=== PATIENT | male | born 1945 | race Caucasian/White ===

== ENCOUNTER → 2017-02-26 | Outpatient (CLI) | payer MEDICARE, BC | END | disposition home or self-care (01) | LOC: PCVCCLINIC 11:00 | PROVIDERS: ATTEND Internal Medicine | DX: Z01.812 Encounter for preprocedural laboratory examination (principal); I25.110 Atherosclerotic heart disease of native coronary artery with unstable angina pectoris; R07.9 Chest pain, unspecified; I71.4 Abdominal aortic aneurysm, without rupture; E78.5 Hyperlipidemia, unspecified; I10 Essential (primary) hypertension; I73.9 Peripheral vascular disease, unspecified; R73.02 Impaired glucose tolerance (oral); E78.00 Pure hypercholesterolemia, unspecified; Z87.891 Personal history of nicotine dependence; Z79.82 Long term (current) use of aspirin | CPT/HCPCS: 36415; G0463 ==

== ENCOUNTER → 2017-02-27 | Outpatient (CLI) | payer MEDICARE, BC ==
--- NOTE | 2017-02-27 16:24 | PCVCIMAG ---
APPROVED REPORT Indications Stenosis Risk Factors Hypertension: Hyperlipidemia PAD Doppler Spectral Velocity Analysis PSV / EDVPSV / EDV ECA (R) 86 / 8 cm/sECA (L) 86 / 10 cm/s dICA (R) 100 / 30 cm/sdICA (L) 78 / 24 cm/s Aura (R) 76 / 26 cm/smICA (L) 87 / 29 cm/s pICA (R) 78 / 12 cm/spICA (L) 54 / 9 cm/s Bulb (R) 57 / 12 cm/sBulb (L) 84 / 16 cm/s dCCA (R) 86 / 18 cm/sdCCA (L) 97 / 20 cm/s mCCA (R) 96 / 19 cm/smCCA (L) 97 / 16 cm/s Vert (R) 73 / 16 cm/sVert (L) 50 / 11 cm/s ICA/CCA 1.16ICA/CCA 0.90 Basic Measurements Blood Pressure: Pulses: Right Left RightLeft Brachial(Sitting) 166/40kkRn209/90mmHgTemporal Real Time B-Mode Imaging AreaRight Plaque DescriptionLeft Plaque Description VertebralAntegradeAntegrade Findings The right carotid bulb has moderate calcified plaque. The right proximal internal carotid artery shows <40% stenosis. The right common carotid artery shows no significant stenosis. The right external carotid artery shows no significant stenosis. The left carotid bulb has mild calcified plaque. The left proximal internal carotid artery shows no significant stenosis. The left common carotid artery shows no significant stenosis. The left external carotid artery shows no significant stenosis. Conclusion 1. Right internal carotid artery stenosis (<40%) 2. Left internal carotid plaquing 3. Antegrade vertebral flow
--- NOTE | 2017-02-27 16:33 | PCVCIMAG ---
APPROVED REPORT Study performed: 02/27/2017 13:56:08 EXAM: Comprehensive 2D, Doppler, and color-flow Echocardiogram Patient Location: Echo lab Status: routine Other Information Study Quality: Good Risk Factors: Cardiac Risk Factors: HTN, Hyperlipidemia,Hx tobacco use Indications Dyspnea CAD Chest Pain 2D Dimensions IVSd: 9.76 (7-11mm)LVOT Diam: 22.51 (18-24mm) LVDd: 35.58 mm PWd: 8.80 (7-11mm)Ascending Ao: 30.32 (22-36mm) LVDs: 21.34 (25-40mm) Left Atrium: 28.58 (27-40mm) Aortic Root: 28.64 mm LV Single Plane 4CH: 64.83 % LV Single Plane 2CH: 68.79 %Conteh's LVEF: 66.81 % Biplane EF: 66.8 % Volumes Left Atrial Volume (Systole) Single Plane 4CH: 41.33 mLSingle Plane 2CH: 41.71 mL LA ESV Index: 23.00 mL/m2 Aortic Valve AoV Peak Prateek.: 1.54 m/s AO Peak Gr.: 10.32 mmHgLVOT Max P.55 mmHg LVOT Max V: 1.28 m/s ERENDIRA Vmax: 3.30 cm2 Mitral Valve E/A Ratio: 1.7 MV Decel. Time: 142.98 ms MV E Max Prateek.: 0.83 m/s MV A Prateek.: 0.49 m/s MV PHT: 41.46 ms IVRT: 100.35 ms TDI E/Lateral E': 7.55E/Medial E': 10.38 Medial E' Prateek.: 0.08 m/s Lateral E' Prateek.: 0.11 m/s Pulmonary Valve PV Peak Prateek.: 1.19 m/sPV Peak Gr.: 5.69 mmHg Pulmonary Vein P Vein S: 0.89 m/sP Vein A: 0.32 m/s P Vein D: 0.61 m/sP Vein A Dur.: 96.9 msec P Vein S/D Ratio: 1.46 Tricuspid Valve TR Peak Prateek.: 1.64 m/s TR Peak Gr.: 10.82 mmHg TV Vmax: 0.66 m/sPA Pressure: 18.00 mmHg Left Ventricle The left ventricle is normal size. There is normal LV segmental wall motion. Borderline concentric left ventricular hypertrophy. Left ventricular systolic function is normal. The left ventricular ejection fraction is within the normal range. LVEF is 65-70%. The left ventricular diastolic function is normal. Right Ventricle The right ventricle is normal size. The right ventricular systolic function is normal. Atria The left atrium size is normal. The right atrium size is normal. Aortic Valve Trileaflet aortic valve, mildly calcified. No aortic regurgitation is present. There is no aortic valvular stenosis. Mitral Valve Mild annular calcification. There is no mitral valve regurgitation noted. No evidence of mitral valve stenosis. Tricuspid Valve The tricuspid valve is normal in structure. There is no tricuspid valve regurgitation noted. Pulmonic Valve The pulmonary valve is normal in structure. There is no pulmonic valvular regurgitation. Great Vessels The aortic root is normal in size. IVC is normal in size and collapses with >50% inspiration Pericardium There is no pericardial effusion. There is no pleural effusion. <Conclusion> Left ventricular systolic function is normal. There is normal LV segmental wall motion. LVEF 65-70%. Trileaflet aortic valve, mildly calcified. No aortic valvular stenosis or insufficiency. Mild annular calcification. No mitral valve regurgitation noted. Pulmonary artery pressure could not be reliably ascertained. There is no pericardial effusion.
== END | disposition home or self-care (01) ==
LOC: PCVCIMAG 13:35
PROVIDERS: ATTEND Internal Medicine
DX: I65.23 Occlusion and stenosis of bilateral carotid arteries (principal); I25.10 Atherosclerotic heart disease of native coronary artery without angina pectoris; I10 Essential (primary) hypertension; E78.5 Hyperlipidemia, unspecified; I73.9 Peripheral vascular disease, unspecified; I51.7 Cardiomegaly; Z87.891 Personal history of nicotine dependence
CPT/HCPCS: 93306; 93880

== ENCOUNTER → 2017-04-11 | Outpatient (CLI) | payer MEDICARE, BC | END | disposition home or self-care (01) | LOC: PCVCCLINIC 10:00 | PROVIDERS: ATTEND Internal Medicine | DX: I25.10 Atherosclerotic heart disease of native coronary artery without angina pectoris (principal); I10 Essential (primary) hypertension; I65.23 Occlusion and stenosis of bilateral carotid arteries; E78.5 Hyperlipidemia, unspecified; I71.4 Abdominal aortic aneurysm, without rupture; Z95.1 Presence of aortocoronary bypass graft; Z79.82 Long term (current) use of aspirin; Z87.891 Personal history of nicotine dependence | CPT/HCPCS: 80061; 93005; G0463 ==

== ENCOUNTER → 2018-01-15 | Outpatient (CLI) | payer MEDICARE, BC | END | disposition home or self-care (01) | LOC: PCVCCLINIC 15:02 | DX: I25.10 Atherosclerotic heart disease of native coronary artery without angina pectoris (principal); I10 Essential (primary) hypertension; I65.23 Occlusion and stenosis of bilateral carotid arteries; E78.5 Hyperlipidemia, unspecified; Z95.1 Presence of aortocoronary bypass graft; Z87.891 Personal history of nicotine dependence; Z79.899 Other long term (current) drug therapy; Z79.82 Long term (current) use of aspirin | CPT/HCPCS: 93005; G0463 ==

== ENCOUNTER → 2018-09-15 | Outpatient (CLI) | payer MEDICARE, BC | END | disposition home or self-care (01) | LOC: PCVCCLINIC 14:37 | PROVIDERS: ATTEND Internal Medicine | DX: I25.10 Atherosclerotic heart disease of native coronary artery without angina pectoris (principal); I10 Essential (primary) hypertension; E78.5 Hyperlipidemia, unspecified; I65.23 Occlusion and stenosis of bilateral carotid arteries; I73.9 Peripheral vascular disease, unspecified; Z95.1 Presence of aortocoronary bypass graft; Z87.891 Personal history of nicotine dependence; Z79.82 Long term (current) use of aspirin | CPT/HCPCS: 36415; 80061; 93005; G0463 ==